=== PATIENT | male | born 1990 | race Caucasian/White ===

== ENCOUNTER 2020-07-23 18:30 | Emergency (ER) | payer OTHER, SELFPAY ==
[2020-07-23 18:45] VITALS: BP 129/80; PULSE 79; RESP 20; TEMP 37.6; O2SAT 97
[2020-07-23 18:51] VITALS: BP 129/80; PULSE 79; RESP 20; TEMP 37.6; O2SAT 97
--- NOTE | 2020-07-23 18:51 | ED.BACK ---
HPI - Back Pain/Injury General Chief Complaint: Back Pain/Injury Stated Complaint: back pain Source: patient and RN notes reviewed Limitations: no limitations History of Present Illness HPI Narrative: The patient, who is a right-handed computer systems consultant, presents with upper back pain. Patient states he has atraumatic onset of left scapular pain that is mild, worse with motion, better at rest. Besides working at the computer, he recalls he was repetitively tossing his young son up in the air, yesterday. No fever, cough, sneezing/wheezing, loss of taste or smell, shortness of breath, anterior chest pain, radiating pain, numbness/weakness, neck pain, gait changes., Related Data Allergies Allergy/AdvReac Type Severity Reaction Status Date / Time environmental allergies Allergy Mild Unknown Uncoded 07/23/20 18:50 Review of Systems Review of Systems: Narrative: General/Constitutional: No weight loss,fever Eyes: N0: Redness,discharge Ears/Nose/Throat: No: Epistaxis,ear discharge Respiratory: Denies: Hemoptysis Gastrointestinal: No Vomiting, Bleeding-rectal Skin: No Lumps, eruption Neurologic: No Focal Weakness,Sz Hematologic: Denies: Petechiae/Purpura Psychiatric: No: Suicida ideationl All Other Systems: Reviewed and Negative PMFSH Comments At time of signature, agree with nursing past medical, surgical, social and family history. There is no relevant family history pertinent to the presenting complaint Exam Narrative: Exam Narrative: General Appearance: Well appearing, Conjunctiva clear Mouth/Throat: Normal appearing, Supple Respiratory: Airway patent, Abdomen: Soft Musculoskeletal: Normal strength 5/5 :Bi/Tri, no saddle weakness Spine/Back: left rhomboid muscle tender with mild decreased range of motion) Skin: Normal color Neurological: A&O x3, CN II-XII intact, Normal reflexes (symmetric, 2+ Bi/Tri) Psychiatric: Normal mood Course Vital Signs Vital signs: Vital Signs Temperature 99.7 F H 07/23/20 18:45 Pulse Rate 79 07/23/20 18:45 Respiratory Rate 20 07/23/20 18:45 Blood Pressure 129/80 07/23/20 18:45 Pulse Oximetry 97 07/23/20 18:45 Temperature 99.7 F H 07/23/20 18:51 Pulse Rate 79 07/23/20 18:51 Respiratory Rate 20 07/23/20 18:51 Blood Pressure 129/80 07/23/20 18:51 Pulse Oximetry 97 07/23/20 18:51 Discharge Plan Discharge Clinical Impression: Upper back strain Qualifiers: Encounter type: initial encounter Qualified Code(s): S29.012A - Strain of muscle and tendon of back wall of thorax, initial encounter Patient Disposition: Home, Self-Care Condition: Stable Instructions: Thoracic Back Strain (ED) Prescriptions: New tramadol 50 mg tablet 50 mg PO TID PRN (Reason: pain) Qty: 15 RF: 1 prednisone 20 mg tablet 60 mg PO DAILY Qty: 9 RF: 0 acetaminophen-codeine 300-30 mg tablet 1 tablet PO HS PRN (Reason: pain) Qty: 10 RF: 0 Follow-up/Referrals: Koki,DO Gregory [Primary Care Provider] -
== END 2020-07-23 19:07 | disposition home or self-care (01) ==
PROVIDERS: Emergency Provider Emergency Medicine; PCP Student in an Organized Health Care Education/Training Program
DX: S29.012A Strain of muscle and tendon of back wall of thorax, initial encounter (principal); X58.XXXA Exposure to other specified factors, initial encounter
CPT/HCPCS: 99213; G0463

== ENCOUNTER 2021-11-23 17:53 | Emergency (ER) | payer OTHER, SELFPAY ==
[2021-11-23 18:03] VITALS: BP 123/81; PULSE 110; RESP 18; TEMP 37.2; O2SAT 98
--- NOTE | 2021-11-23 18:13 | ED.URI ---
HPI - URI/Sore Throat General Chief Complaint: Upper Respiratory Infection Stated Complaint: Sore Throat,Headache,Congestion Time Seen by Provider: 11/23/21 18:13 History of Present Illness HPI Narrative: Toy Lyons is a 31 yo male who comes to his care with complaints of a sore throat x 2 days. He has had a fever 101, headache, sore throat. Related Data Allergies Allergy/AdvReac Type Severity Reaction Status Date / Time environmental allergies Allergy Mild Unknown Uncoded 11/23/21 18:07 Review of Systems Review of Systems: CONSTITUTIONAL: Has fever, chills, sweats. Has a headache EYES: Denies visual changes, redness, discharge. ENT: Denies rhinorrhea, congestion, has sore throat, otalgia. CARDIOVASCULAR: Denies chest pain, palpitations, edema. RESPIRATORY: Denies dyspnea, wheezing, cough GASTROINTESTINAL: Denies abdominal pain, nausea, vomiting, diarrhea. GENITOURINARY: Denies dysuria, hematuria, abnormal discharge SKIN: Denies rash or itching. NEUROLOGIC: Denies numbness, or focal weakness. PSYCHIATRIC: Denies anxiety or depression. [facility] Social History Social History (Updated 11/23/21 @ 18:24 by Fatoumata Honeycutt CNP) Smoking status: Never smoker Exam Narrative: GENERAL: This is a well-nourished, well-developed patient, in mild distress. Has headache and fever still HEAD: normocephalic, atraumatic. EYES: . Sclera clear/white. Vision is grossly intact. EARS: External ears normal, auditory canals clear and without drainage, TMs normal without perforation. Hearing grossly intact. NOSE: External nose normal without nasal discharge, nares without redness, no rhinorrhea. THROAT: Mucous membranes moist, posterior pharynx erythema NECK: Neck supple, non-tender CARDIOVASCULAR: Tachycardic rate and rhythm without murmurs, gallops, or rubs. RESPIRATORY: Clear to auscultation. Breath sounds equal bilaterally. No wheezes, rales, or rhonchi. GASTROINTESTINAL: Abdomen soft, SKIN: warm, intact with no suspicious lesions or rash, good texture and turgor. NEURO: awake, alert, and oriented to person, place and time. There were no obvious focal neurologic abnormalities. Steady gait EXTREMITIES: Normal range of motion. BACK: Nontender without deformity Course Course Emergency Course: Patient comes with headache fever and sore throat x1.5 days he is tachycardic Strep test Flu done Level of Care: Express Care Visit Vital Signs Vital signs: Vital Signs Temperature 99.0 F 11/23/21 18:03 Pulse Rate 110 H 11/23/21 18:03 Respiratory Rate 18 11/23/21 18:03 Blood Pressure 123/81 11/23/21 18:03 Pulse Oximetry 98 11/23/21 18:03 Oxygen Delivery Room Air 11/23/21 18:03 Temperature 99.0 F 11/23/21 18:03 Pulse Rate 110 H 11/23/21 18:03 Respiratory Rate 18 11/23/21 18:03 Blood Pressure 123/81 11/23/21 18:03 Pulse Oximetry 98 11/23/21 18:03 Oxygen Delivery Room Air 11/23/21 18:03 MDM - URI/Sore Throat Lab Data Labs: Influenza A Screen Negative Reference Range: Negative Influenza B Screen Negative Reference Range: Negative Strep Screen Presumptive Negative *(Reference Range: Negative)* Discharge Plan Discharge Clinical Impression: Bacterial pharyngitis Patient Disposition: Home, Self-Care Condition: Stable Instructions: Pharyngitis (ED) Additional Instructions: Push fluids Take Motrin are Tylenol for pain and fever-continue to monitor temperature Take antibiotics as prescribed Prescriptions: New amoxicillin 875 mg tablet 875 mg PO Q12H Qty: 20 0RF Follow-up/Referrals: PHYSICIAN,HAM CURER [Primary Care Provider] - Stand Alone Forms: Work/School Release IP Time of Disposition: 18:34
== END 2021-11-23 18:35 | disposition home or self-care (01) ==
PROVIDERS: Emergency Provider Nurse Practitioner
DX: J02.9 Acute pharyngitis, unspecified (principal)
CPT/HCPCS: 87081; 87804; 87880; 99213; G0463

== ENCOUNTER 2022-11-01 11:48 | Emergency (ER) | payer OTHER, SELFPAY ==
[2022-11-01 12:01] VITALS: BP 123/80; PULSE 74; RESP 18; TEMP 36.4; O2SAT 100
--- NOTE | 2022-11-01 12:13 | ED.NECK ---
HPI - Neck Pain/Injury General Chief Complaint: Neck Pain/Injury Stated Complaint: neck pain and stiffness Time Seen by Provider: 11/01/22 12:13 Source: patient Mode of arrival: ambulatory Limitations: no limitations History of Present Illness HPI Narrative: Patient is a 32-year-old male who presents with neck pain for 2 days. States he woke up and turned his head and felt a sharp pain in bilateral neck muscles. Reports pain is worst when trying to look up. No increased pain when looking down. States he has tried heat, but that worsens pain. Denies any numbness tingling or weakness to upper extremities. Denies fever, chills, nausea, vomiting, diarrhea. Still able to turn head [id number]. Related Data Home Medications Medication Instructions Recorded Confirmed dextroamphetamine-amphetamine ER 10 mg PO DAILY 11/01/22 11/01/22 10 mg 24hr capsule,extend release sertraline 25 mg tablet 25 mg PO DAILY 11/01/22 11/01/22 Allergies Allergy/AdvReac Type Severity Reaction Status Date / Time environmental allergies Allergy Mild Unknown Uncoded 11/01/22 12:04 Review of Systems Review of Systems: All systems reviewed & are unremarkable except as noted in HPI and below Constitutional: Constitutional: Denies body ache(s), Denies chills, Denies fatigue, Denies fever(s), Denies headache(s), Denies malaise and Denies weakness Eyes: Eyes: Denies blurry vision, Denies irritation and Denies loss of vision ENT: Denies otalgia, Denies headache(s), Denies nasal discharge, Denies sinus pain and Denies sore throat Cardiovascular: Cardiovascular: Denies chest pain, Denies irregular heart rhythm and Denies dyspnea Respiratory: Respiratory: Denies dyspnea Gastrointestinal: Gastrointestinal: Denies abdominal pain, Denies melena, Denies hematochezia, Denies diarrhea, Denies nausea and Denies vomiting Musculoskeletal: Musculoskeletal: Denies back pain, Denies myalgias, Denies arthralgias and Reports neck pain Integumentary/Breasts: Skin/Breast: Denies pruritus and Denies rash Neurologic: Denies headache(s), Denies loss of vision and Denies weakness Psychiatric: Psychiatric: Reports no additional psychiatric complaints Endocrine: Endocrine: Denies fatigue [facility] Social History Social History (Updated 11/23/21 @ 18:24 by Fatomuata Honeycutt, GIS SPECIALIST) Smoking status: Never smoker Comments At time of signature, agree with nursing past medical, surgical, social and family history. There is no relevant family history pertinent to the presenting complaint. Exam Const: General: cooperative, healthy appearing, comfortable, no acute distress and well nourished Nutritional Appearance: well nourished Orientation/consciousness: patient oriented x3 Limitations: no limitations HENMT: Head: normal to inspection, normocephalic and atraumatic Ears: hearing grossly normal bilaterally and external ears normal Face/Nose/Sinus: Normal external nose present, normal facial exam and face symmetric Face and sinus: normal facial exam and face symmetric Mouth: Yes lip normal Eyes: General: appearance normal, both eyes and all related structures Alignment and Position: alignment normal and position normal Periorbital: periorbital findings normal Eyelids: eyelids normal Pupils: Equal, round and reactive pupils present EOM: EOMs intact bilaterally Neck: Neck: normal visual inspection and supple Chest: Chest palpation & inspection: normal inspection of the chest Resp: Effort & Inspection: normal respiratory effort and able to speak in complete sentences Auscultation: clear to auscultation bilaterally Cardio: Rate: regular rate Rhythm: regular rhythm Heart sounds: S1 normal heart sound present and S2 normal heart sound present GI: Inspection: normal to inspection Back/Spine/Pelvis: Cervical Spine: cervical ROM normal, cervical muscular tenderness (Bilateral trapezius muscles), No Cervical spine tenderness and No step off deformity Skin: General
== END 2022-11-01 12:42 | disposition home or self-care (01) ==
PROVIDERS: Emergency Provider Nurse Practitioner Family; PCP Student in an Organized Health Care Education/Training Program
DX: S16.1XXA Strain of muscle, fascia and tendon at neck level, initial encounter (principal); X58.XXXA Exposure to other specified factors, initial encounter; Z86.16 Personal history of COVID-19
CPT/HCPCS: 99213; G0463